=== PATIENT | female | born 1985 | race Caucasian/White ===

== ENCOUNTER 2017-04-03 09:39 | Outpatient (CLI) | payer MEDICAID ==
[~2017-04-03] VITALS: Ht 167.6 cm; Wt 83.9 kg
[~2017-04-03 09:39] MED LIST: BCP; CALC625T8 PO; FERR-57 PO; LORA0.5T PO; NITR-65 PO; OXYC-12 PO; PREN1TAB39; PRM25T PO; SERT25TA PO
[2017-04-03] MEDS ORDERED: ETHI1TAB PO (13:58)
[2017-04-03] MEDS ORDERED: VORT10TA PO (13:58)
[2017-04-03] MEDS ORDERED: OMEP20TA7 PO (13:58)
[2017-04-03] MEDS ORDERED: TERB250T16 PO (13:58)
== END 2017-04-03 14:07 ==
LOC: PREOP 09:39
PROVIDERS: ATTEND Surgery
DX: Z01.818 Encounter for other preprocedural examination (principal); R10.13 Epigastric pain

== ENCOUNTER 2017-04-08 12:31 | Day surgery (SDC) | payer MEDICAID ==
[~2017-04-08] VITALS: Ht 167.6 cm; Wt 83.9 kg
[~2017-04-08 12:31] MED LIST changes: +ETHI1TAB PO; +OMEP20TA7 PO; +TERB250T16 PO; +VORT10TA PO
--- OUTSIDE RECORDS SUMMARY | 2017-04-08 12:35 | XMS REPORT ---
Author Author BALJEET BAGLEY [facility] eClinicalWorks Address Unknown Phone Unavailable Care Team Providers Care Corporate Coordinator Name Role Phone BALJEET BAGLEY Unavailable Allergies No Known Allergies Problems Problem Type Condition Code Onset Dates Condition Status Problem Major depressive disorder, recurrent episode, moderate F33.1 Active Problem Latent tuberculosis R76.11 Active Problem Anxiety F41.9 Active Medications Medication Code System Code Instructions Start Date End Date Status Dosage Brintellix [facility] [address]-00 5 MG Orally Once a day Dec 03, 2014 1 tablet Results No Known Results Summary Purpose eClinicalWorks Submission
--- OUTSIDE RECORDS SUMMARY | 2017-04-08 12:35 | XMS REPORT ---
Author KHIRS Delong [facility] eClinicalWorks Address Unknown Phone Unavailable Care Team Providers Care Advertising Solicitor Name Role Phone KHRIS SHEETS CP Unavailable Allergies No Known Allergies Problems Problem Type Condition Code Onset Dates Condition Status Problem Major depressive disorder, recurrent episode, moderate F33.1 Active Problem Latent tuberculosis R76.11 Active Problem Anxiety F41.9 Active Medications No Known Medications Results No Known Results Summary Purpose eClinicalWorks Submission
--- OUTSIDE RECORDS SUMMARY | 2017-04-08 12:35 | XMS REPORT ---
Author Author BALJEET BAGLEY [facility] eClinicalWorks Address Unknown Phone Unavailable Care Team Providers Care Renal Social Worker Name Role Phone BALJEET BAGLEY CP Unavailable Allergies No Known Allergies Problems Problem Type Condition Code Onset Dates Condition Status Problem Major depressive disorder, recurrent episode, moderate F33.1 Active Problem Latent tuberculosis R76.11 Active Problem Anxiety F41.9 Active Medications No Known Medications Results No Known Results Summary Purpose eClinicalWorks Submission
--- OUTSIDE RECORDS SUMMARY | 2017-04-08 12:35 | XMS REPORT ---
Author Author BALJEET BAGLEY eClinicalWorks Address Unknown Phone Unavailable Care Team Providers Care Mail Distribution Scheme Examiner Name Role Phone BALJEET BAGLEY CP Unavailable Allergies No Known Allergies Problems Problem Type Condition Code Onset Dates Condition Status Problem Major depressive disorder, recurrent episode, moderate F33.1 Active Problem Latent tuberculosis R76.11 Active Problem Anxiety F41.9 Active Assessment Encounter for immunization Z23 Active Medications No Known Medications Procedures Procedure Coding System Code Date SINGLE IMMUNIZATION ADMIN CPT-4 64455 Dec 19, 2015 FLUARIX QUAD P-FREE 3 AND UP .50 2015 CPT-4 70556 Dec 19, 2015 Results No Known Results Immunizations Vaccine Administration Date FLUARIX QUAD P-FREE 3 AND UP .50 2015Dec 19, 2015 Summary Purpose eClinicalWorks Submission
--- OUTSIDE RECORDS SUMMARY | 2017-04-08 12:35 | XMS REPORT ---
Author Author LAURO JC Organization [facility] Address [address] [place] [address] Care Team Providers Care Middle Stitcher Name Role Phone LAURO JC Unavailable PROBLEMS Type Condition ICD9-CM Code [id number] Code Onset Dates Condition Status SNOMED Code Problem Subacute vaginitis N76.1 Active 31023096382351322 Problem Gastroesophageal reflux disease without esophagitis K21.9 Active 972054798 Problem Major depressive disorder, recurrent episode, moderate F33.1 Active 798303066 Problem Latent tuberculosis R76.11 Active 09003521 Problem Anxiety F41.9 Active 80688074 ALLERGIES Substance Reaction Event Type Date Status Bactrim DS Unknown Drug Allergy Jan, Active penicillian Unknown Non Drug Allergy Jan, Active SOCIAL HISTORY Never Assessed PLAN OF CARE VITAL SIGNS Height 65 in 2016-01-29 Weight 179.0 lbs 2016-01-29 Temperature 97.7 degrees Fahrenheit 2016-01-29 Heart Rate 80 bpm 2016-01-29 Respiratory Rate 22 2016-01-29 BMI 29.78 kg/m2 2016-01-29 Blood pressure systolic 110 mmHg 2016-01-29 Blood pressure diastolic 74 mmHg 2016-01-29 MEDICATIONS Medication Instructions Dosage Frequency Start Date End Date Duration Status Zithromax Z-Gaudencio 250 MG Orally Once a day 2 tablets on the first day, then 1 tablet daily for 4 days 24h Jan, Jan, 5 day(s) Active Trintellix 5 mg Orally Once a day 1 tablet 24h Jan, 30 day(s) Active RESULTS No Results PROCEDURES No Known procedures IMMUNIZATIONS No Known Immunizations MEDICAL (GENERAL) HISTORY Type Description Date Medical History anxiety Medical History depression Surgical History wisdom teeth extraction 06/24/2015 Hospitalization History childbirth x 3
--- OUTSIDE RECORDS SUMMARY | 2017-04-08 12:35 | XMS REPORT ---
Author Author BALJEET BAGLEY [facility] eClinicalWorks Address Unknown Phone Unavailable Care Team Providers Care Insulation Board Calender Operator Name Role Phone BALJEET BAGLEY CP Unavailable Allergies, Adverse Reactions, Alerts Substance Reaction Event Type Bactrim DS Info Not Available Drug Allergy Problems Problem Type Condition Code Onset Dates Condition Status Problem Major depressive disorder, recurrent episode, moderate F33.1 Active Problem Latent tuberculosis R76.11 Active Problem Anxiety F41.9 Active Assessment Pruritic rash L28.2 Active Assessment Major depressive disorder, recurrent episode, moderate F33.1 Active Assessment Anxiety F41.9 Active Medications Medication Code System Code Instructions Start Date End Date Status Dosage Ambien [facility] [address]-02 5 MG Orally Once a day 1 tablet at bedtime as needed Klonopin [facility] [address]-81 0.5 MG May 10, 2014 1 tablet by Oral route 2 times per day PRN anxiety Medrol (Gaudencio) [facility] [address]-03 4 MG Orally Dec 30, 2014 as directed Desogen [facility] [address]-51 0.15-30 MG-MCG Orally Once a day September 01, 2014 1 tablet Procedures Procedure Coding System Code Date Office Visit, Est Pt., Level 3 CPT-4 32000 Dec 30, 2014 Vital Signs Date/Time: Dec 30, 2014 Temperature 98.9 F Weight 163.7 lbs Height 65 in BMI 27.24 Index Blood Pressure Diastolic 78 mmHg Blood Pressure Systolic 120 mmHg Cardiac Monitoring Heart Rate 80 bpm Results No Known Results Summary Purpose eClinicalWorks Submission
--- OUTSIDE RECORDS SUMMARY | 2017-04-08 12:35 | XMS REPORT ---
Author Author BALJEET BAGLEY Organization eClinicalWorks Address Unknown Phone Unavailable Care Team Providers Care Wire Straightening Machine Operator Name Role Phone BALJEET BAGLEY CP Unavailable Allergies, Adverse Reactions, Alerts Substance Reaction Event Type Bactrim DS Info Not Available Drug Allergy Problems Problem Type Condition Code Onset Dates Condition Status Assessment BMI 26.0-26.9,adult Z68.26 Active Problem Major depressive disorder, recurrent episode, moderate F33.1 Active Problem Latent tuberculosis R76.11 Active Problem Anxiety F41.9 Active Assessment Other terminologist (current) drug therapy Z79.899 Active Assessment Screening cholesterol level Z13.220 Active Assessment Major depressive disorder, recurrent episode, moderate F33.1 Active Assessment Anxiety F41.9 Active Medications Medication Code System Code Instructions Start Date End Date Status Dosage Desogen [facility] [address]-59 0.15-30 MG-MCG Orally Once a day September 01, 2014 1 tablet [address] [facility] [address]-92 5 MG Orally Once a day Dec 03, 2014 [address] [facility] [address]-22 0.5 MG May 10, 2014 1 tablet by Oral route 2 times per day PRN anxiety Procedures Procedure Coding System Code Date COMPREHEN METABOLIC PANEL CPT-4 20446 Dec 03, 2014 LIPID PANEL CPT-4 46517 Dec 03, 2014 COMPLETE CBC W/AUTO DIFF WBC CPT-4 92152 Dec 03, 2014 VENIPUNCT, ROUTINE* CPT-4 55756 Dec 03, 2014 Office Visit, Est Pt., Level 3 CPT-4 90671 Dec 03, 2014 Vital Signs Date/Time: Dec 03, 2014 Temperature 98.0 F Weight 161.5 lbs Height 65 in BMI 26.87 Index Blood Pressure Diastolic 78 mmHg Blood Pressure Systolic 124 mmHg Cardiac Monitoring Heart Rate 78 bpm Results Name Result Date Reference Range Unit Abnormality Flag ROUTINE VENIPUNCTURE CBC Summary Purpose eClinicalWorks Submission
--- OUTSIDE RECORDS SUMMARY | 2017-04-08 12:35 | XMS REPORT ---
Author SEN Arambula Organization eClinicalWorks Address Unknown Phone Unavailable Care Team Providers Care Real Estate Salesperson Name Role Phone SEN BRANDON CP Unavailable Allergies, Adverse Reactions, Alerts Substance Reaction Event Type Bactrim DS Info Not Available Drug Allergy Problems Problem Type Condition Code Onset Dates Condition Status Problem Major depressive disorder, recurrent episode, moderate F33.1 Active Problem Latent tuberculosis R76.11 Active Problem Anxiety F41.9 Active Assessment [place] mites B88.0 Active Assessment Scabies B86 Active Medications Medication Code System Code Instructions Start Date End Date Status Dosage Permethrin [facility] [address]-81 5 % Externally treat today wash off in 12 hours and repeat in one week. Jan 18, 2015 as directed Klonopin [facility] [address]-92 0.5 MG May 10, 2014 1 tablet by Oral route 2 times per day PRN anxiety Wellbutrin SR [facility] [address]-21 150 MG Orally Twice a day 1 tablet Desogen [facility] [address]-44 0.15-30 MG-MCG Orally Once a day September 01, 2014 1 tablet Ambien [facility] [address]-17 5 MG Orally Once a day 1 tablet at bedtime as needed Procedures Procedure Coding System Code Date Office Visit, Est Pt., Level 3 CPT-4 91471 Jan 18, 2015 Vital Signs Date/Time: Jan 18, 2015 Temperature 98.4 F Weight 165 lbs Height 65 in BMI 27.45 Index Blood Pressure Diastolic 78 mmHg Blood Pressure Systolic 130 mmHg Cardiac Monitoring Heart Rate 88 bpm Results No Known Results Summary Purpose eClinicalWorks Submission
--- OUTSIDE RECORDS SUMMARY | 2017-04-08 12:35 | XMS REPORT ---
Author Author BHAVIK Lara Organization [facility] Address Unknown Care Team Providers Care Can Runner Name Role Phone BHAVIK Lara Unavailable PROBLEMS Type Condition ICD9-CM Code TEX62-LG Code Onset Dates Condition Status SNOMED Code Problem Subacute vaginitis N76.1 Active 59886315897181466 Problem Gastroesophageal reflux disease without esophagitis K21.9 Active 223387088 Problem Major depressive disorder, recurrent episode, moderate F33.1 Active 252065324 Problem Latent tuberculosis R76.11 Active 30206268 Problem Anxiety F41.9 Active 27677060 ALLERGIES Substance Reaction Event Type Date Status Bactrim DS Unknown Drug Allergy Feb, Active penicillian Unknown Non Drug Allergy Feb, Active SOCIAL HISTORY No smoking Hx information available PLAN OF CARE Activity Details Follow Up prn Reason:#15 and #[address] collins VITAL SIGNS Height 65 in 2016-02-29 Blood pressure systolic 119 mmHg 2016-02-29 Blood pressure diastolic 67 mmHg 2016-02-29 MEDICATIONS Medication Instructions Dosage Frequency Start Date End Date Duration Status Trintellix 5 mg Orally Once a day 1 tablet 24h Jan, 07 days Active RESULTS No Results PROCEDURES Procedure Date Ordered Related Diagnosis Body Site RESIN COMPOS - 3 SURFACES POSTERIOR Feb 29, 2016 IMMUNIZATIONS No Known Immunizations
--- OUTSIDE RECORDS SUMMARY | 2017-04-08 12:35 | XMS REPORT ---
Author Author BALJEET BAGLEY Organization [facility] Address [address] [place] [address] Care Team Providers Care Technology Consultant Name Role Phone BALJEET BAGLEY Unavailable PROBLEMS Type Condition ICD9-CM Code LFS51-CO Code Onset Dates Condition Status SNOMED Code Problem Subacute vaginitis N76.1 Active 62627513183504792 Problem Gastroesophageal reflux disease without esophagitis K21.9 Active 283759806 Problem Major depressive disorder, recurrent episode, moderate F33.1 Active 786158993 Problem Latent tuberculosis R76.11 Active 22776106 Problem Anxiety F41.9 Active 94932184 ALLERGIES Unknown Allergies SOCIAL HISTORY No smoking Hx information available PLAN OF CARE VITAL SIGNS MEDICATIONS Medication Instructions Dosage Frequency Start Date End Date Duration Status Trintellix 5 mg Orally Once a day 1 tablet 24h Jan, 07 days Active RESULTS No Results PROCEDURES No Known procedures IMMUNIZATIONS No Known Immunizations
--- OUTSIDE RECORDS SUMMARY | 2017-04-08 12:35 | XMS REPORT ---
Author BHAVIK Fuentes eClinicalWorks Address Unknown Phone Unavailable Care Team Providers Care Directional Bore Operator Name Role Phone BHAVIK ELAINE CP Unavailable Allergies, Adverse Reactions, Alerts Substance Reaction Event Type Bactrim DS Info Not Available Drug Allergy Problems Problem Type Condition Code Onset Dates Condition Status Problem Major depressive disorder, recurrent episode, moderate F33.1 Active Problem Latent tuberculosis R76.11 Active Problem Anxiety F41.9 Active Assessment Dental examination Z01.20 Active Medications Medication Code System Code Instructions Start Date End Date Status Dosage Brintellix [facility] [address]-87 5 MG Orally Once a day Dec 03, 2014 1 tablet Amoxicillin [facility] [address]-61 500 MG Orally 4 times a day Oct 31, 2015 Nov 07, 2015 1 capsule Klonopin [facility] [address]-99 0.5 MG May 10, 2014 1 tablet by Oral route 2 times per day PRN anxiety Procedures Procedure Coding System Code Date BITEWINGS - FOUR FILMS CPT-4 D0274 Oct 31, 2015 PANORAMIC FILM SEE ALSO CODE 96214 CPT-4 D0330 Oct 31, 2015 COMP ORAL EVALUATION - NEW/EST PT CPT-4 D0150 Oct 31, 2015 Vital Signs Date/Time: Oct 31, 2015 Blood Pressure Diastolic 93 mmHg Blood Pressure Systolic 143 mmHg Height 65 in Results No Known Results Summary Purpose eClinicalWorks Submission
--- OUTSIDE RECORDS SUMMARY | 2017-04-08 12:35 | XMS REPORT ---
Author Author NELA HIGHTOWER Organization eClinicalWorks Address Unknown Phone Unavailable Care Team Providers Care Rigger Up Name Role Phone NELA HIGHTOWER CP Unavailable Allergies, Adverse Reactions, Alerts Substance Reaction Event Type Bactrim DS Info Not Available Drug Allergy Problems Problem Type Condition Code Onset Dates Condition Status Problem Major depressive disorder, recurrent episode, moderate F33.1 Active Problem Latent tuberculosis R76.11 Active Problem Anxiety F41.9 Active Assessment Encounter for counseling regarding contraception Z30.9 Active Assessment Well woman exam (no gynecological exam) Z00.00 Active Assessment Screening breast examination Z12.39 Active Medications Medication Code System Code Instructions Start Date End Date Status Dosage Desogen [facility] [address]-69 0.15-30 MG-MCG Orally Once a day September 01, 2014 1 tablet Klonopin [facility] [address]-41 0.5 MG May 10, 2014 1 tablet by Oral route 2 times per day PRN anxiety Brintellix [facility] [address]-64 5 MG Orally Once a day Dec 03, 2014 1 tablet Procedures Procedure Coding System Code Date Preventive Care Est Pt. Age 18-39 CPT-4 90818 August 24, 2015 URINE TEST CPT-4 85047 August 24, 2015 Vital Signs Date/Time: August 24, 2015 Cardiac Monitoring Heart Rate 80 bpm Weight 170.0 lbs Height 65 in Blood Pressure Diastolic 74 mmHg Blood Pressure Systolic 138 mmHg Results No Known Results Summary Purpose eClinicalWorks Submission
--- OUTSIDE RECORDS SUMMARY | 2017-04-08 12:35 | XMS REPORT ---
Author Author BALJEET BAGLEY Organization [facility] Address [address] [place] [address] Care Team Providers Care Seo Consultant Name Role Phone KEVYN, BALJEET Unavailable PROBLEMS Type Condition ICD9-CM Code HGZ37-CH Code Onset Dates Condition Status SNOMED Code Problem Subacute vaginitis N76.1 Active 20555611267639504 Problem Gastroesophageal reflux disease without esophagitis K21.9 Active 232341065 Problem Major depressive disorder, recurrent episode, moderate F33.1 Active 255555291 Problem Latent tuberculosis R76.11 Active 62387796 Problem Anxiety F41.9 Active 12606689 ALLERGIES Substance Reaction Event Type Date Status Bactrim DS Unknown Drug Allergy Feb, Active penicillian Unknown Non Drug Allergy Feb, Active SOCIAL HISTORY No smoking Hx information available PLAN OF CARE Activity Details Follow Up 6 Months Reason:Depression/anxiety VITAL SIGNS Height 65 in 2016-03-06 Weight 182.7 lbs 2016-03-06 Temperature 97.8 degrees Fahrenheit 2016-03-06 Heart Rate 80 bpm 2016-03-06 Respiratory Rate 20 2016-03-06 BMI 30.40 kg/m2 2016-03-06 Blood pressure systolic 124 mmHg 2016-03-06 Blood pressure diastolic 75 mmHg 2016-03-06 MEDICATIONS Medication Instructions Dosage Frequency Start Date End Date Duration Status Tretinoin 0.025 % Externally Once a day 1 application to affected area in the evening to face 24h Feb, 30 days Active Ambien 5 MG Orally Once a day 1 tablet at bedtime as needed 24h Active Trintellix 5 MG Orally Once a day 1 tablet 24h Jan, 30 days Active Klonopin 0.5 MG 1 tablet by Oral route 2 times per day PRN anxiety Apr, Active Clarissa 28 3-0.03 MG Orally Once a day 1 tablet 24h Feb, 28 day( s) Active RESULTS No Results PROCEDURES Procedure Date Ordered Related Diagnosis Body Site Office Visit, Est Pt., Level 3 Mar 06, 2016 IMMUNIZATIONS No Known Immunizations
[2017-04-08] MEDS ORDERED: HURRICAINE EXT TUBE (BENZOCAINE) XX PRN (12:45)
[2017-04-08] MEDS ORDERED: LACTATED RINGERS 1,000 ML IV ONE ×2 (12:47→15:45)
[2017-04-08 12:56] VITALS: BP 129/78
[2017-04-08] MEDS ORDERED: proPOfol 200 MG/20 ML (DIPRIVAN) VIAL IV ONE ×2 (13:31→13:53)
--- NOTE | 2017-04-08 13:49 | Progress Note-Pre Operative ---
Pre-Operative Progress Note H&P Reviewed The H&P was reviewed, patient examined and no changes noted. Time Seen by Provider: 13:46 Date H&P Reviewed: Apr 08, 2017 Time H&P Reviewed: 13:04 Pre-Operative Diagnosis: Gastritis BERNARDO LOPEZ DO Apr 08, 2017 13:49
--- NOTE | 2017-04-08 14:09 | Progress Note-Post Operative ---
Post-Operative Progess Note Surgeon (s)/Securities Sales Associate (s) Surgeon BERNARDO LOPEZ DO Securities Sales Associate: none Pre-Operative Diagnosis Gastritis Post-Operative Diagnosis Same pending pathology Procedure & Operative Findings Date of Procedure 04/08/17 Procedure Performed/Findings EGD with bx Anesthesia Type IV sedation by SCRAP PREPARER Estimated Blood Loss Estimated blood loss (mL): scant Specimens/Packing Specimens Removed antral bx BERNARDO LOPEZ DO Apr 08, 2017 14:09
--- NOTE | 2017-04-08 14:11 | Endoscopy Discharge Instruct ---
Endo Procedure/Findings Findings 1.: Gastritis Discharge Instructions - Activity: You might feel a little sleepy until tomorrow. This is due to the medicine you received to relax you. Until tomorrow, you should: NOT drive a car, operate machinery or power tools. NOT drink any alcoholic beverages. NOT make any important decisions or sign importortant papers. Do not return to work until tomorrow, unless otherwise instructed. Resume previous activities tomorrow. Diet: Start by taking liquids. If you tolerate liquids, advance to solid food. Make appointment for one week. Notify Physician - If you experience excessive bleeding, unusual abdominal pain, fever, or chest pain, contact your doctor immediately. Follow-Up: - I have received and understand the above instructions and will call my doctor if I have any further questions. Patient Signature Date Nurse Signature Other (Relationship) BERNARDO LOPEZ DO Apr 08, 2017 14:10
[2017-04-08 14:20] VITALS: BP 121/77
[2017-04-08 14:32] VITALS: BP 129/78
--- NOTE | 2017-04-08 14:44 | Anesthesia-General Post-Op ---
General Patient Condition Mental Status/LOC: Same as Preop Cardiovascular: Satisfactory Nausea/Vomiting: Absent Respiratory: Satisfactory Pain: Controlled Complications: Absent Post Op Complications Complications None Follow Up Care/Instructions Patient Instructions None needed. Anesthesia/Patient Condition Patient Condition Patient is doing well, no complaints, stable vital signs, no apparent adverse anesthesia problems. No complications reported per nursing. TELMA GARCIA CRNA Apr 08, 2017 14:43
[2017-04-08 14:50] VITALS: BP 132/76
[2017-04-08 14:54] VITALS: BP 132/76
--- NOTE | 2017-04-08 21:30 | OPERATIVE REPORT ---
DATE OF SERVICE: 04/08/2017 PREOPERATIVE DIAGNOSIS: Gastritis. POSTOPERATIVE DIAGNOSIS: Gastritis. PROCEDURE: EGD with biopsy. SURGEON: Beau Boyce DO. FAMILY PRESERVATION OFFICER: None. ANESTHESIA: IV sedation by PILE DRIVING TECHNICIAN. SPECIMEN: One biopsy from the antrum. BLOOD LOSS: Scant. FLUIDS: Per anesthesia. POSTOPERATIVE CONDITION: Stable. INDICATION FOR PROCEDURE: The patient is a 31-year-old female, who has been having reflux symptoms that have not been getting better and we elected to have an EGD with biopsy performed to rule out gastric ulcers as well as possible H. pylori. FINDINGS: The patient had mild gastritis throughout the stomach, duodenum and esophagus as well as the GE junction looked okay. PROCEDURE NOTE: After informed consent was obtained, the patient was brought to the endoscopy suite and placed in the left lateral decubitus position. She was administered IV sedation by the PILE DRIVING TECHNICIAN who then monitored her vitals the entire time, heart rate, blood pressure and pulse ox and the scope was inserted down the mouth into the back of throat and down the esophagus and into the stomach. Stomach did look a little bit red and it looked like there was some gastritis. No ulcers were seen. Pushed into the duodenum and duodenum looked normal. I pulled back into the antrum, took a biopsy and then got a good specimen and then retroflexed. No hiatal hernia seen. The rest of the stomach looked okay. Pulled the scope back into the esophagus, GE junction looked okay. Took a picture of this and then slowly withdrew the scope. Again, the esophagus looked okay, pulled the scope out the esophagus and out the mouth. The patient tolerated the procedure well and she has recovered in the endoscopy suite. Job ID: [id number] DocumentID: [id number] Dictated Date: 04/08/2017 15:06:44 Mail Sorting Supervisor Date: 04/08/2017 21:29:24 Dictated By: BEAU BOYCE DO
== END 2017-04-08 14:55 | disposition home or self-care (01) ==
LOC: ENDO 12:31
PROVIDERS: ATTEND Surgery
DX: K29.70 Gastritis, unspecified, without bleeding (principal); Z87.891 Personal history of nicotine dependence
CPT/HCPCS: 84703